=== PATIENT | female | born 1995 | race Caucasian/White ===

== ENCOUNTER 2022-08-28 11:48 | Emergency (ER) | payer OTHER ==
[2022-08-28 12:25] VITALS: BP 119/67; PULSE 63; RESP 18; TEMP 98.9; BMI 24.0
[2022-08-28 15:28] LABS: HIV INTERPRETATION NEGATIVE (NEGATIVE)
== END 2022-08-28 13:45 | disposition home or self-care (01) ==
LOC: JERFT 11:48
DX: K11.20 Sialoadenitis, unspecified (principal)
CPT/HCPCS: 0241U-QW; 36415; 84703; 86735; 87389; 99283-25